=== PATIENT | male | born 1990 | race Caucasian/White ===

== ENCOUNTER 2022-03-01 01:24 | Emergency (ER) | payer BC ==
[~2022-03-01] VITALS: Ht 170.2 cm; Wt 113.4 kg
--- NOTE | 2022-03-01 02:14 | NUR ---
pt ambulated to room 2b c/o ear pain and throat pain.
[2022-03-01] MEDS ORDERED: LOSA1TAB42 PO (02:19)
[2022-03-01] MEDS ORDERED: METO-357 PO (02:19)
[2022-03-01] MEDS ORDERED: NEOM10DR11 EACH EAR (03:01)
[2022-03-01] MEDS ORDERED: AZIT250T13 PO (03:01)
[2022-03-01] MEDS ORDERED: OXYC-128 PO (03:01)
[2022-03-01 03:10] VITALS: BP 130/80
--- NOTE | 2022-03-01 03:10 | NUR ---
Patient discharged to home in stable condition. Written and verbal after care instructions given. Patient verbalizes understanding of instructions. Stressed follow up or return to ER for worsening s/s.
== END 2022-03-01 03:10 | disposition home or self-care (01) ==
LOC: ER 01:34
DX: J02.9 Acute pharyngitis, unspecified (principal); I10 Essential (primary) hypertension
CPT/HCPCS: A4663